=== PATIENT | female | born 1940 | race Caucasian/White ===

== ENCOUNTER 2018-03-09 09:23 | Observation (INO) | payer OTHER ==
[~2018-03-09] VITALS: Ht 172.7 cm; Wt 63.5 kg
[2018-03-09 09:28] VITALS: BP_SYST 168
[2018-03-09] MEDS ORDERED: METF-509 PO (09:37)
[2018-03-09] MEDS ORDERED: ASA81 PO (09:37)
[2018-03-09] MEDS ORDERED: LIP20 PO (09:37)
[2018-03-09] MEDS ORDERED: LISI-600 PO (09:37)
[2018-03-09] MEDS ORDERED: GABA-533 PO (09:37)
[2018-03-09 10:09] LABS: BASOPHILS % (AUTO) 0.3 % (0.0-2.0); EOSINOPHILS # (AUTO) 0.2 K/uL (0.0-0.4); EOSINOPHILS % (AUTO) 3.2 % (0.0-4.0); HEMATOCRIT 32.8 % (36-48); LYMPHOCYTES # (AUTO) 1.8 K/uL (1.0-5.5); LYMPHOCYTES % (AUTO) 30.6 % (20.5-51.5); MEAN CORPUSCULAR HEMOGLOBIN 30 pg (27-31); MEAN CORPUSCULAR HGB CONC 34 % (32-36); MEAN CORPUSCULAR VOLUME 90 fL (79.0-98.0); MONOCYTES # (AUTO) 0.6 K/uL (0.0-1.0); MONOCYTES % (AUTO) 10.4 % (1.7-9.3); NEUTROPHILS # (AUTO) 3.4 K/uL (1.8-7.7); NEUTROPHILS % (AUTO) 55.5 % (40.0-70.0); PLATELET COUNT (AUTO) 310 K/uL (130-430); RED BLOOD CELL COUNT(AUTO) 3.65 MIL/uL (4.2-6.2); RED CELL DISTRIBUTION WIDTH 12.5 % (9.0-15.0)
[2018-03-09 10:19] LABS: INR 0.9 (0.8-1.2); PROTHROMBIN TIME 9.4 SECS (9.5-12.5)
[2018-03-09 10:23] LABS: ANION GAP 9 (5-15); CALCIUM 9.3 mg/dL (8.4-11.0); CHLORIDE 103 mmol/L (98-107); CREATININE 1.13 mg/dL (0.55-1.30); GLUCOSE 190 mg/dL (70-99); POTASSIUM 4.6 mmol/L (3.5-5.1); SODIUM SERUM 140 mmol/L (136-145); UREA NITROGEN, BLOOD 23 mg/dL (8-21)
[2018-03-09 10:29] LABS: TOTAL BILIRUBIN 0.8 mg/dL (0.0-1.0)
[2018-03-09 10:30] LABS: ACETAMINOPHEN < 1 ug/mL (1-30); ALANINE AMINOTRANSFERASE 15 U/L (12-78); ALBUMIN 3.3 g/dL (3.4-4.8); ASPARTATE AMINOTRANSFERASE 16 U/L (10-37)
[2018-03-09 10:40] LABS: ALCOHOL, BLOOD < 3 mg/dL (<10)
[2018-03-09] MEDS ORDERED: NACL 0.9% 1,000 ML IV ONE (11:45)
[2018-03-09 14:02] LABS: BILIRUBIN,URINE NEGATIVE (NEGATIVE); BLOOD, URINE NEGATIVE (NEGATIVE); CLARITY/URINE SL HAZY (CLEAR); COLOR,URINE YELLOW (YELLOW); GLUCOSE,URINE TRACE (NEGATIVE); KETONES,URINE NEGATIVE (NEGATIVE); LEUKOCYTE ESTERASE ,URINE NEGATIVE (NEGATIVE); NITRITE, URINE NEGATIVE (NEGATIVE); PROTEIN URINE 1+ (NEGATIVE); UROBILINOGEN,URINE 0.2 (0.2-1.0)
[2018-03-09 14:13] LABS: BACTERIA,URINE MANY /HPF (None Seen); RBC,URINE 0-3 /HPF (0-3); WBC,URINE 0-3 /HPF (0-3)
[2018-03-09 14:14] LABS: MUCUS,URINE None Seen /LPF (None Seen); YEAST,URINE None Seen /HPF (None Seen)
[2018-03-09 14:15] LABS: BARBITURATE, URINE NEGATIVE (NEG <=200); BENZODIAZEPINE, URINE NEGATIVE (NEG <=150); CANNABINOID, URINE POSITIVE (NEG <=50); COCAINE, URINE NEGATIVE (NEG <=150); METHAMPHETAMINES SCREEN,URINE NEGATIVE (NEG <=500); URINE AMPHETAMINE NEGATIVE (NEG <=500); URINE METHADONE NEGATIVE (NEG <=200)
[2018-03-09 14:16] LABS: OPIATE, URINE NEGATIVE (NEG <=100); PHENCYCLIDINE SCREEN,URINE NEGATIVE (NEG <=25); UR TRICYCLIC ANTIDEPRESSANTS NEGATIVE (NEG <=300); URINE OXYCODONE SCREEN NEGATIVE (NEG <=100); URINE PROPOXYPHENE SCREEN NEGATIVE (NEG <=300)
[2018-03-09] MEDS: D5NS 1,000 ML IV SCH (15:04)
[2018-03-09 16:07] VITALS: BP_SYST 177
[2018-03-09] MEDS ORDERED: cloNIDine HCL 0.1 MG TABLET PO PRN (17:00)
[2018-03-09 19:12] VITALS: BP_SYST 164
[2018-03-09] MEDS ORDERED: FORTEO 20 MCG SUBCUT SCH (21:00)
[2018-03-10 01:18] VITALS: BP_SYST 141
[2018-03-10] MEDS: D5NS 1,000 ML IV SCH (05:21)
[2018-03-10 07:30] VITALS: BP_SYST 145
[2018-03-10] MEDS ORDERED: DEXTROSE 50% JECT 50 ML DISP.SYRIN IVP PRN (09:15)
[2018-03-10] MEDS ORDERED: INSULIN REGULAR, HUMAN 100 UNITS/ML, 10 ML VIAL (novoLIN R) SUBCUT PRN (09:15)
[2018-03-10] MEDS ORDERED: ASPIRIN 81 MG TAB.CHEW PO ONE (09:15)
[2018-03-10 09:27] VITALS: BP_SYST 98
[2018-03-10 12:45] VITALS: BP_SYST 154
[2018-03-10] MEDS ORDERED: GABAPENTIN 400 MG CAPSULE PO SCH (15:00)
[2018-03-11] MEDS ORDERED: LISINOPRIL 20 MG TABLET PO SCH (09:00)
[2018-03-11] MEDS ORDERED: ATORVASTATIN 20 MG TABLET PO SCH (09:00)
[2018-03-11] MEDS ORDERED: ASPIRIN 81 MG TAB.CHEW PO SCH (09:00)
== END 2018-03-10 11:55 | disposition home or self-care (01) ==
LOC: SED 09:23 → STU 14:07
PROVIDERS: ADMIT Internal Medicine Hospice and Palliative Medicine; ATTEND Internal Medicine Hospice and Palliative Medicine
DX: R42 Dizziness and giddiness (principal); E11.9 Type 2 diabetes mellitus without complications; I10 Essential (primary) hypertension; G62.9 Polyneuropathy, unspecified; F14.90 Cocaine use, unspecified, uncomplicated; R20.2 Paresthesia of skin; E11.51 Type 2 diabetes mellitus with diabetic peripheral angiopathy without gangrene; Z96.649 Presence of unspecified artificial hip joint
CPT/HCPCS: 36415; 70450; 71045; 80053; 80307; 81000; 82962; 84484; 85025; 85610; 85730; 87086; 93005; 96360; 96361 ×2; 96372 ×2; 99284; G0378 ×2; G0480; G0481; G0482; J7042 ×2; 99285